=== PATIENT | female | born 1980 | race Two or more races ===

== ENCOUNTER 2016-08-31 08:36 | Emergency (ER) | payer MEDICAID ==
[~2016-08-31] VITALS: Ht 172.7 cm; Wt 97.5 kg
[~2016-08-31 08:36] MED LIST: ALBU0.084; ALBU18; CARI-277 PO; GABA250S2 PO; IBUPROFEN 800 MG TABLET; LEVO-28; LISI10TA6; METO-159; OMEPRAZOLE DR 20 MG CAPSULE; PANTOPRAZOLE SOD DR 40 MG TAB; PHENERGAN; TOPI100T29 PO
[2016-08-31 09:21] VITALS: BP 166/111
[2016-08-31] MEDS: cefTRIAXone SOD 1,000 MG VL IM ONE (10:01)
[2016-08-31] MEDS: methylPREDNISolone SOD SUCC 125 MG/2 ML VL IM ONE (10:01)
[2016-08-31] MEDS: ONDANSETRON HCL 4 MG/2 ML VIAL IM ONE (10:02)
[2016-08-31] MEDS: HYDROcodone-ACET 10/325MG TAB PO ONE (10:15)
== END 2016-08-31 10:48 | disposition home or self-care (01) ==
LOC: ER 08:36
DX: L03.211 Cellulitis of face (principal); H01.001 Unspecified blepharitis right upper eyelid; J45.909 Unspecified asthma, uncomplicated; I10 Essential (primary) hypertension; F17.210 Nicotine dependence, cigarettes, uncomplicated; Z90.89 Acquired absence of other organs; Z90.49 Acquired absence of other specified parts of digestive tract; Z88.0 Allergy status to penicillin; Z88.1 Allergy status to other antibiotic agents
CPT/HCPCS: 96372; 99284; J0696; J2405; J2930

== ENCOUNTER 2016-08-31 21:11 | Emergency (ER) | payer MEDICAID ==
[~2016-08-31] VITALS: Ht 172.7 cm; Wt 99.8 kg
[2016-08-31 21:19] VITALS: BP 129/92
[2016-09-01] MEDS ORDERED: IBUPROFEN 600 MG TAB PO ONE (01:00)
[2016-09-01] MEDS ORDERED: ONDANSETRON ODT 4 MG TAB PO ONE (01:00)
== END 2016-09-01 01:08 | disposition home or self-care (01) ==
LOC: ER 21:14
DX: H01.003 Unspecified blepharitis right eye, unspecified eyelid (principal); L03.211 Cellulitis of face; J45.909 Unspecified asthma, uncomplicated; I10 Essential (primary) hypertension; F17.210 Nicotine dependence, cigarettes, uncomplicated; Z88.0 Allergy status to penicillin; Z88.1 Allergy status to other antibiotic agents; Z88.8 Allergy status to other drugs, medicaments and biological substances; Z90.49 Acquired absence of other specified parts of digestive tract; Z79.899 Other long term (current) drug therapy
CPT/HCPCS: 70480; 99284; Q0162

== ENCOUNTER 2016-09-02 14:45 | Emergency (ER) | payer MEDICAID ==
[~2016-09-02] VITALS: Ht 172.7 cm; Wt 99.8 kg
[2016-09-02 15:10] VITALS: BP 141/104
== END 2016-09-02 17:28 | disposition home or self-care (01) ==
LOC: ER 14:45
DX: L23.9 Allergic contact dermatitis, unspecified cause (principal); J45.909 Unspecified asthma, uncomplicated; I10 Essential (primary) hypertension; F17.210 Nicotine dependence, cigarettes, uncomplicated; Z79.899 Other long term (current) drug therapy; Z88.0 Allergy status to penicillin; Z88.1 Allergy status to other antibiotic agents; Z88.8 Allergy status to other drugs, medicaments and biological substances

== ENCOUNTER 2016-10-10 12:44 | Emergency (ER) | payer MEDICAID ==
[~2016-10-10] VITALS: Ht 172.7 cm; Wt 99.8 kg
[2016-10-10 12:53] VITALS: BP 145/90
== END 2016-10-10 15:14 | disposition home or self-care (01) ==
LOC: ER 12:44
DX: N76.0 Acute vaginitis (principal); F17.210 Nicotine dependence, cigarettes, uncomplicated; J45.909 Unspecified asthma, uncomplicated; I10 Essential (primary) hypertension; Z88.0 Allergy status to penicillin; Z88.1 Allergy status to other antibiotic agents; Z79.899 Other long term (current) drug therapy

== ENCOUNTER 2016-10-14 09:13 | Emergency (ER) | payer MEDICAID ==
[~2016-10-14] VITALS: Ht 172.7 cm; Wt 100.2 kg
[2016-10-14 09:18] VITALS: BP 158/91
[2016-10-14] MEDS: KETOROLAC TROMETH 60MG/2ML VIAL IM ONE (11:17)
[2016-10-14] MEDS: cefTRIAXone SOD 1,000 MG VL IM ONE (11:17)
== END 2016-10-14 11:52 | disposition home or self-care (01) ==
LOC: ER 09:17
DX: N76.2 Acute vulvitis (principal); N39.0 Urinary tract infection, site not specified; J45.909 Unspecified asthma, uncomplicated; F17.210 Nicotine dependence, cigarettes, uncomplicated; I10 Essential (primary) hypertension; Z90.49 Acquired absence of other specified parts of digestive tract; Z88.0 Allergy status to penicillin; Z88.1 Allergy status to other antibiotic agents; Z88.6 Allergy status to analgesic agent; Z88.8 Allergy status to other drugs, medicaments and biological substances
CPT/HCPCS: 96372; 99284; J0696; J1885

== ENCOUNTER 2016-10-17 14:21 | Emergency (ER) | payer MEDICAID ==
[~2016-10-17] VITALS: Ht 172.7 cm; Wt 99.8 kg
[2016-10-17 15:22] VITALS: BP 163/98
[2016-10-17] MEDS ORDERED: cefTRIAXone SOD 1,000 MG VL ONE (15:51)
[2016-10-17] MEDS ORDERED: cefTRIAXone SOD 1,000 MG VL IM ONE ×2 (16:00→16:15)
[2016-10-17] MEDS ORDERED: KETOROLAC TROMETH 60MG/2ML VIAL IM ONE (16:00)
== END 2016-10-17 18:50 | disposition home or self-care (01) ==
LOC: ER 14:21
DX: N76.2 Acute vulvitis (principal); J45.909 Unspecified asthma, uncomplicated; I10 Essential (primary) hypertension; Z90.49 Acquired absence of other specified parts of digestive tract; F17.210 Nicotine dependence, cigarettes, uncomplicated; Z88.0 Allergy status to penicillin; Z88.1 Allergy status to other antibiotic agents; Z88.6 Allergy status to analgesic agent; Z88.8 Allergy status to other drugs, medicaments and biological substances
CPT/HCPCS: 96372; 99284; J0696; J1885

== ENCOUNTER 2016-10-21 21:23 | Emergency (ER) | payer MEDICAID ==
[~2016-10-21] VITALS: Ht 172.7 cm; Wt 99.8 kg
[2016-10-21 21:45] VITALS: BP 160/105
[2016-10-22 00:50] LABS: Urine Bilirubin Negative (Negative); Urine Ca Oxalate Crystal MANY (None Seen); Urine Color Yellow (Yellow); Urine Glucose Normal (Normal); Urine Ketone Negative (Negative); Urine Mucus FEW (None Seen); Urine Nitrite Negative (Negative); Urine RBC 4 /hpf (0 - 4); Urine Squamous Epithelial Cell MANY /hpf (<5); Urine pH 5.5 (5.0-8.0)
[2016-10-22 00:55] LABS: Urine Blood 1+ /uL (Negative)
[2016-10-22] MEDS ORDERED: cefTRIAXone SOD 1,000 MG VL IM ONE (01:15)
[2016-10-22] MEDS ORDERED: LIDOCAINE 1% HCL (LOCAL ANESTH.) INJ 20ML MDV ONE (01:23)
[2016-10-22] MEDS ORDERED: ONDANSETRON HCL 4 MG/2 ML VIAL IM ONE (01:30)
== END 2016-10-22 01:47 | disposition home or self-care (01) ==
LOC: ER 21:23
DX: N76.4 Abscess of vulva (principal); J45.909 Unspecified asthma, uncomplicated; I10 Essential (primary) hypertension; Z79.899 Other long term (current) drug therapy; Z88.0 Allergy status to penicillin; Z88.1 Allergy status to other antibiotic agents; F17.210 Nicotine dependence, cigarettes, uncomplicated
CPT/HCPCS: 81001; 81025; 96372; 99284; J0696; J2001; J2405

== ENCOUNTER 2016-12-19 18:28 | Emergency (ER) | payer MEDICAID ==
[~2016-12-19] VITALS: Ht 172.7 cm; Wt 99.8 kg
[2016-12-19 18:33] VITALS: BP 161/113
[2016-12-19 19:08] LABS: Urine Bilirubin Negative (Negative); Urine Color Yellow (Yellow); Urine Glucose Normal (Normal); Urine Ketone Negative (Negative); Urine Mucus FEW (None Seen); Urine Nitrite Negative (Negative); Urine RBC 433 /hpf (0 - 4); Urine Squamous Epithelial Cell FEW /hpf (<5); Urine pH 5.5 (5.0-8.0)
[2016-12-19 19:14] LABS: Urine Blood 3+ /uL (Negative)
[2016-12-19 19:29] LABS: Basophils # (auto) 0.1 uL; Basophils % (auto) 0.5 % (0.0-2.0); Eosinophils # (auto) 0.3 uL; Eosinophils % (auto) 2.1 % (0.0-7.0); Hematocrit 42.5 % (36.0-46.0); Hemoglobin 14.2 g/dL (12.2-16.2); Lymphocytes # (auto) 3.2 uL; Lymphocytes % (auto) 23.5 % (10.0-50.0); Mean Corpuscular Hemoglobin 27.8 pg (28.0-32.0); Mean Corpuscular Hgb Conc. 33.5 g/dL (32.0-36.0); Mean Corpuscular Volume 83.2 fL (80.0-100.0); Mean Platelet Volume 7.5 fL (7.4-10.4); Monocytes # (auto) 0.9 uL; Monocytes % (auto) 6.9 % (0.0-12.0); Neutrophils # (auto) 9.1 uL; Platelet Count (auto) 413 10^3/uL (140-450); White Blood Cell 13.5 10^3/uL (4.4-10.8)
[2016-12-19] MEDS ORDERED: KETOROLAC TROMETH 30 MG/ML 1ML VIAL IV ONE (20:00)
[2016-12-19] MEDS ORDERED: ONDANSETRON HCL 4 MG/2 ML VIAL IV ONE (20:00)
[2016-12-19] MEDS ORDERED: SODIUM CHLORIDE 0.9% 1,000 ML IV ONE (20:00)
[2016-12-19 20:05] LABS: Albumin 3.6 g/dL (3.4-5.0); BUN/Creatinine Ratio 11.3; Bilirubin, Total 0.4 mg/dL (0.2-1.0); Calcium 8.4 mg/dL (8.5-10.1); Potassium 3.5 mmol/L (3.5-5.1); Total Protein 7.2 g/dL (6.4-8.2)
[2016-12-20] MEDS ORDERED: ONDANSETRON ODT 4 MG TAB PO ONE (00:30)
[2016-12-20] MEDS ORDERED: traMADol HCL 50 MG TAB PO ONE (00:30)
== END 2016-12-20 00:55 | disposition home or self-care (01) ==
LOC: ER 18:30
DX: R10.9 Unspecified abdominal pain (principal); M54.5 Low back pain; F17.210 Nicotine dependence, cigarettes, uncomplicated; R11.2 Nausea with vomiting, unspecified; J45.909 Unspecified asthma, uncomplicated; I10 Essential (primary) hypertension; Z90.49 Acquired absence of other specified parts of digestive tract; Z88.0 Allergy status to penicillin; Z88.1 Allergy status to other antibiotic agents; Z88.8 Allergy status to other drugs, medicaments and biological substances
CPT/HCPCS: 36415; 74176; 80053; 81001; 81025; 85025; 94761; 96361; 96374; 96375; 99285; J1885; J2405; J7030; Q0162

== ENCOUNTER 2017-01-12 21:54 | Emergency (ER) | payer MEDICAID ==
[~2017-01-12] VITALS: Ht 172.7 cm; Wt 99.8 kg
[2017-01-12 22:00] VITALS: BP 158/99
== END 2017-01-13 05:32 | disposition home or self-care (01) ==
LOC: ER 22:10
DX: T20.50XA Corrosion of first degree of head, face, and neck, unspecified site, initial encounter (principal); I10 Essential (primary) hypertension; J45.909 Unspecified asthma, uncomplicated; Z88.0 Allergy status to penicillin; Z88.1 Allergy status to other antibiotic agents; T65.891A Toxic effect of other specified substances, accidental (unintentional), initial encounter; Y93.89 Activity, other specified; Y99.8 Other external cause status; Y92.89 Other specified places as the place of occurrence of the external cause

== ENCOUNTER 2017-07-23 22:19 | Emergency (ER) | payer MEDICAID ==
[~2017-07-23] VITALS: Ht 172.7 cm; Wt 99.8 kg
[2017-07-24 01:20] LABS: Basophils # (auto) 0.1 uL; Basophils % (auto) 0.9 % (0.0-2.0); Eosinophils # (auto) 0.4 uL; Eosinophils % (auto) 2.2 % (0.0-7.0); Hematocrit 43.1 % (36.0-46.0); Hemoglobin 14.3 g/dL (12.2-16.2); Lymphocytes # (auto) 4.1 uL; Lymphocytes % (auto) 25.4 % (10.0-50.0); Mean Corpuscular Hemoglobin 27.6 pg (28.0-32.0); Mean Corpuscular Hgb Conc. 33.2 g/dL (32.0-36.0); Mean Corpuscular Volume 83.2 fL (80.0-100.0); Monocytes # (auto) 0.8 uL; Monocytes % (auto) 4.7 % (0.0-12.0); Neutrophils # (auto) 10.8 uL; Neutrophils % (auto) 66.8 % (37.0-80.0); Platelet Count (auto) 444 10^3/uL (140-450); Red Blood Cells 5.18 10^6/uL (4.0-5.20); Red Cell Distribution Width 15.9 % (11.8-14.3); White Blood Cell 16.2 10^3/uL (4.4-10.8)
[2017-07-24 01:41] LABS: Albumin 3.7 g/dL (3.4-5.0); Potassium 3.7 mmol/L (3.5-5.1)
[2017-07-24 01:46] LABS: Urine Bacteria NONE SEEN /hpf (None Seen); Urine Blood TRACE /uL (Negative); Urine Specific Gravity 1.021 (1.001-1.035); Urine WBC 2 /hpf (0 - 5)
[2017-07-24 01:49] LABS: Bilirubin, Total 0.1 mg/dL (0.2-1.0)
[2017-07-24] MEDS ORDERED: IPRATROPIUM BROM 0.5 MG/2.5ML INH SOL NEB ONE (09:15)
[2017-07-24] MEDS ORDERED: ALBUTEROL SULF 2.5 MG/0.5ML(0.5%) NEB SOLN NEB ONE (09:15)
[2017-07-24 11:00] VITALS: BP 140/100
== END 2017-07-24 11:32 | disposition home or self-care (01) ==
LOC: ER 22:29
DX: J45.909 Unspecified asthma, uncomplicated (principal); G89.29 Other chronic pain; M54.9 Dorsalgia, unspecified; I10 Essential (primary) hypertension; R00.0 Tachycardia, unspecified; K21.9 Gastro-esophageal reflux disease without esophagitis; F17.210 Nicotine dependence, cigarettes, uncomplicated; Z88.0 Allergy status to penicillin; Z88.1 Allergy status to other antibiotic agents
CPT/HCPCS: 36415; 71046; 80053; 81001; 81025; 84484; 85025; 93005; 94640

== ENCOUNTER 2017-07-28 13:07 | Emergency (ER) | payer MEDICAID ==
[~2017-07-28] VITALS: Ht 172.7 cm; Wt 99.8 kg
[2017-07-28 13:25] VITALS: BP 162/115
[2017-07-28] MEDS ORDERED: methylPREDNISolone SOD SUCC 125 MG/2 ML VL IM ONE (15:45)
[2017-07-28] MEDS ORDERED: ALBUTEROL SULF 2.5 MG/0.5ML(0.5%) NEB SOLN NEB ONE ×2 (15:45→16:30)
[2017-07-28] MEDS ORDERED: IPRATROPIUM BROM 0.5 MG/2.5ML INH SOL NEB ONE ×2 (15:45→16:30)
== END 2017-07-28 16:34 | disposition home or self-care (01) ==
LOC: ER 13:07
DX: J45.909 Unspecified asthma, uncomplicated (principal); F41.1 Generalized anxiety disorder; I10 Essential (primary) hypertension; F17.210 Nicotine dependence, cigarettes, uncomplicated
CPT/HCPCS: 71046; 94640; 96372; 99284; J2930

== ENCOUNTER 2017-08-22 20:10 | Emergency (ER) | payer MEDICAID ==
[~2017-08-22] VITALS: Ht 172.7 cm; Wt 105.7 kg
[2017-08-22] MEDS ORDERED: cloNIDine HCL 0.1 MG TAB ONE (20:19)
[2017-08-22] MEDS ORDERED: cloNIDine HCL 0.1 MG TAB PO ONE (20:30)
[2017-08-22] MEDS ORDERED: HYDROcodone-ACET 5/325MG TAB PO ONE (22:30)
[2017-08-22 22:31] LABS: Basophils # (auto) 0.1 uL; Basophils % (auto) 0.6 % (0.0-2.0); Eosinophils # (auto) 0.4 uL; Eosinophils % (auto) 2.6 % (0.0-7.0); Hematocrit 40.1 % (36.0-46.0); Hemoglobin 13.3 g/dL (12.2-16.2); Lymphocytes # (auto) 3.4 uL; Lymphocytes % (auto) 24.3 % (10.0-50.0); Mean Corpuscular Hemoglobin 27.6 pg (28.0-32.0); Mean Corpuscular Hgb Conc. 33.2 g/dL (32.0-36.0); Mean Corpuscular Volume 83.1 fL (80.0-100.0); Monocytes % (auto) 6.9 % (0.0-12.0); Neutrophils # (auto) 9.1 uL; Neutrophils % (auto) 65.6 % (37.0-80.0); Nucleated Red Blood Cells % 0.1 %; Platelet Count (auto) 387 10^3/uL (140-450); Red Blood Cells 4.82 10^6/uL (4.0-5.20); Red Cell Distribution Width 16.1 % (11.8-14.3); White Blood Cell 13.9 10^3/uL (4.4-10.8)
[2017-08-22 22:34] LABS: Urine Bacteria NONE SEEN /hpf (None Seen); Urine Blood TRACE /uL (Negative); Urine Specific Gravity 1.019 (1.001-1.035); Urine WBC <1 /hpf (0 - 5)
[2017-08-22 22:46] LABS: INR 0.95 (0.9-1.15); Partial Thromboplastin Time 29.2 sec (22.64-33.71); Prothrombin Time 10.3 sec (9.37-12.3)
[2017-08-22 23:44] LABS: Alanine Aminotransferase 27 U/L (13-56); Albumin 3.3 g/dL (3.4-5.0); Alkaline Phosphatase 68 U/L (45-117); Anion Gap 7 (5-15); Aspartate Aminotransferase 16 U/L (15-37); Bilirubin, Total 0.2 mg/dL (0.2-1.0); Blood Urea Nitrogen 6 mg/dL (7-18); Calcium 8.6 mg/dL (8.5-10.1); Carbon Dioxide 25 mmol/L (21-32); Chloride 105 mmol/L (98-107); GFR African American 181 mL/min; GFR Non-African American 149 mL/min; Glucose 92 mg/dL (74-106); Potassium 4.4 mmol/L (3.5-5.1); Sodium 137 mmol/L (136-145); Total Protein 7.2 g/dL (6.4-8.2)
[2017-08-23 00:25] VITALS: BP 128/73
== END 2017-08-23 01:15 | disposition home or self-care (01) ==
LOC: ER 20:10
DX: J06.9 Acute upper respiratory infection, unspecified (principal); J45.909 Unspecified asthma, uncomplicated; I10 Essential (primary) hypertension; F17.210 Nicotine dependence, cigarettes, uncomplicated; Z90.49 Acquired absence of other specified parts of digestive tract
CPT/HCPCS: 36415; 71045; 80053; 81001; 81025; 83880; 84484; 85025; 85610; 85730; 93005; 99285; J7030

== ENCOUNTER 2017-09-23 20:23 | Emergency (ER) | payer MEDICAID ==
[~2017-09-23] VITALS: Ht 172.7 cm; Wt 105.2 kg
[2017-09-23 21:51] LABS: Basophils # (auto) 0.2 uL; Eosinophils # (auto) 0.2 uL; Eosinophils % (auto) 1.3 % (0.0-7.0); Hematocrit 43.1 % (36.0-46.0); Hemoglobin 14.2 g/dL (12.2-16.2); Lymphocytes # (auto) 4.1 uL; Lymphocytes % (auto) 21.1 % (10.0-50.0); Mean Corpuscular Hemoglobin 27.2 pg (28.0-32.0); Mean Corpuscular Hgb Conc. 32.9 g/dL (32.0-36.0); Mean Corpuscular Volume 82.8 fL (80.0-100.0); Monocytes # (auto) 1.1 uL; Monocytes % (auto) 5.4 % (0.0-12.0); Neutrophils # (auto) 13.9 uL; Neutrophils % (auto) 71.2 % (37.0-80.0); Platelet Count (auto) 409 10^3/uL (140-450); Red Blood Cells 5.21 10^6/uL (4.0-5.20); Red Cell Distribution Width 15.9 % (11.8-14.3); White Blood Cell 19.5 10^3/uL (4.4-10.8)
[2017-09-23 22:06] LABS: Urine Bacteria MOD /hpf (None Seen); Urine Blood 2+ /uL (Negative); Urine Specific Gravity 1.017 (1.001-1.035); Urine WBC 12 /hpf (0 - 5)
[2017-09-23 22:10] LABS: Albumin 3.5 g/dL (3.4-5.0); BUN/Creatinine Ratio 8.8; Bilirubin, Total 0.2 mg/dL (0.2-1.0); Calcium 8.9 mg/dL (8.5-10.1); Potassium 3.3 mmol/L (3.5-5.1); Total Protein 7.6 g/dL (6.4-8.2)
[2017-09-23 22:11] LABS: Alcohol, Urine < 3.0 mg/dL (0-5); Amphetamine Screen, Urine NEGATIVE (NEGATIVE); Barbiturate Scree,Urine NEGATIVE (NEGATIVE); Benzodiazephine Screen, Urine NEGATIVE (NEGATIVE); Cannabinoid Screen, Urine NEGATIVE (NEGATIVE); Cocaine Screen, Urine NEGATIVE (NEGATIVE); Opiate Scree,Urine NEGATIVE (NEGATIVE); Phencyclidine Screen, Urine NEGATIVE (NEGATIVE)
[2017-09-24 07:03] VITALS: BP 119/78
[2017-09-24] MEDS ORDERED: cefTRIAXone SOD 1,000 MG VL IM ONE (07:45)
[2017-09-24] MEDS ORDERED: KETOROLAC TROMETH 60MG/2ML VIAL IM ONE (07:45)
== END 2017-09-24 08:08 | disposition home or self-care (01) ==
LOC: ER 20:23
DX: I10 Essential (primary) hypertension (principal); N39.0 Urinary tract infection, site not specified; J01.90 Acute sinusitis, unspecified; F17.210 Nicotine dependence, cigarettes, uncomplicated; J45.909 Unspecified asthma, uncomplicated; Z88.1 Allergy status to other antibiotic agents; Z88.0 Allergy status to penicillin
CPT/HCPCS: 36415; 70450; 80053; 80307; 81001; 85025; 96372; 99285; J0696; J1885

== ENCOUNTER 2017-09-26 15:47 | Emergency (ER) | payer MEDICAID ==
[~2017-09-26] VITALS: Ht 172.7 cm; Wt 106.1 kg
[2017-09-26 20:56] VITALS: BP 160/82
== END 2017-09-26 21:01 | disposition home or self-care (01) ==
LOC: ER 15:47
DX: R07.89 Other chest pain (principal); M79.89 Other specified soft tissue disorders; J45.909 Unspecified asthma, uncomplicated; E78.5 Hyperlipidemia, unspecified; I10 Essential (primary) hypertension; F17.210 Nicotine dependence, cigarettes, uncomplicated; Z88.0 Allergy status to penicillin; Z88.1 Allergy status to other antibiotic agents; Z88.8 Allergy status to other drugs, medicaments and biological substances; Z79.899 Other long term (current) drug therapy; Z90.49 Acquired absence of other specified parts of digestive tract
CPT/HCPCS: 93005; 93971

== ENCOUNTER 2018-07-21 19:33 | Emergency (ER) | payer MEDICAID ==
[~2018-07-21] VITALS: Ht 172.7 cm; Wt 101.2 kg
[2018-07-21] MEDS ORDERED: cloNIDine HCL 0.1 MG TAB PO ONE (20:15)
[2018-07-21 22:04] LABS: Basophils # (auto) 0.1 uL; Basophils % (auto) 0.6 % (0.0-2.0); Eosinophils # (auto) 0.6 uL; Eosinophils % (auto) 3.5 % (0.0-7.0); Hemoglobin 14.6 g/dL (12.2-16.2); Lymphocytes # (auto) 3.5 uL; Lymphocytes % (auto) 19.8 % (10.0-50.0); Mean Corpuscular Hemoglobin 27.5 pg (28.0-32.0); Mean Corpuscular Hgb Conc. 32.5 g/dL (32.0-36.0); Mean Corpuscular Volume 84.7 fL (80.0-100.0); Monocytes % (auto) 5.6 % (0.0-12.0); Neutrophils # (auto) 12.6 uL; Neutrophils % (auto) 70.5 % (37.0-80.0); Nucleated Red Blood Cells % 0.1 %; Platelet Count (auto) 450 10^3/uL (140-450); Red Blood Cells 5.31 10^6/uL (4.0-5.20); White Blood Cell 17.9 10^3/uL (4.4-10.8)
[2018-07-21 22:09] LABS: Albumin 3.6 g/dL (3.4-5.0); BUN/Creatinine Ratio 13.6; Calcium 8.8 mg/dL (8.5-10.1); Potassium 3.6 mmol/L (3.5-5.1)
[2018-07-21 22:11] LABS: Bilirubin, Total 0.1 mg/dL (0.2-1.0); Total Protein 7.7 g/dL (6.4-8.2)
[2018-07-22] MEDS ORDERED: ONDANSETRON ODT 4 MG TAB PO ONE (03:45)
[2018-07-22 04:09] LABS: Urine Bacteria NONE SEEN /hpf (None Seen); Urine Blood TRACE /uL (Negative); Urine Mucus FEW (None Seen); Urine Specific Gravity 1.028 (1.001-1.035); Urine WBC 19 /hpf (0 - 5)
[2018-07-22 04:19] LABS: Alcohol, Urine < 3.0 mg/dL (0-5); Amphetamine Screen, Urine NEGATIVE (NEGATIVE); Barbiturate Scree,Urine NEGATIVE (NEGATIVE); Benzodiazephine Screen, Urine NEGATIVE (NEGATIVE); Cannabinoid Screen, Urine NEGATIVE (NEGATIVE); Cocaine Screen, Urine NEGATIVE (NEGATIVE); Opiate Scree,Urine NEGATIVE (NEGATIVE); Phencyclidine Screen, Urine NEGATIVE (NEGATIVE)
[2018-07-22] MEDS ORDERED: LEVOFLOXACIN 500 MG TAB PO ONE (05:00)
[2018-07-22 05:23] VITALS: BP 120/80
== END 2018-07-22 05:23 | disposition home or self-care (01) ==
LOC: ER 19:33
DX: I10 Essential (primary) hypertension (principal); N39.0 Urinary tract infection, site not specified; J45.909 Unspecified asthma, uncomplicated; E78.5 Hyperlipidemia, unspecified; F17.210 Nicotine dependence, cigarettes, uncomplicated; Z79.899 Other long term (current) drug therapy; Z88.1 Allergy status to other antibiotic agents; Z88.0 Allergy status to penicillin; Z88.6 Allergy status to analgesic agent; Z90.49 Acquired absence of other specified parts of digestive tract; Z90.89 Acquired absence of other organs
CPT/HCPCS: 36415; 80053; 80307; 81001; 84484; 85025; 93005; 99284; Q0162

== ENCOUNTER 2018-09-14 20:38 | Emergency (ER) | payer MEDICAID ==
[~2018-09-14] VITALS: Ht 172.7 cm; Wt 104.3 kg
[2018-09-14] MEDS ORDERED: IPRATROPIUM BROM 0.5 MG/2.5ML INH SOL NEB ONE (21:30)
[2018-09-14] MEDS ORDERED: ALBUTEROL SULF 2.5 MG/0.5ML(0.5%) NEB SOLN NEB ONE (21:30)
[2018-09-14] MEDS ORDERED: diphenhdrAMINE HCL 25 MG CAP PO ONE (23:15)
[2018-09-14] MEDS ORDERED: EPINEPHrine HCL 1 MG/1 ML AMP IM ONE (23:15)
[2018-09-14] MEDS ORDERED: FAMOTIDINE 20 MG TAB PO ONE (23:15)
[2018-09-14] MEDS ORDERED: methylPREDNISolone SOD SUCC 125 MG/2 ML VL IM ONE (23:15)
[2018-09-15] MEDS ORDERED: IBUPROFEN 600 MG TAB PO ONE (00:15)
[2018-09-15 00:28] VITALS: BP 125/87
== END 2018-09-15 00:17 | disposition home or self-care (01) ==
LOC: ER 20:43
DX: J45.901 Unspecified asthma with (acute) exacerbation (principal); J06.9 Acute upper respiratory infection, unspecified; E78.5 Hyperlipidemia, unspecified; I10 Essential (primary) hypertension; F17.210 Nicotine dependence, cigarettes, uncomplicated; Z90.49 Acquired absence of other specified parts of digestive tract
CPT/HCPCS: 71046; 94640; 96372; 99283; J0171; J2930; J7611; J7644

== ENCOUNTER 2018-09-15 18:14 | Emergency (ER) | payer MEDICAID ==
[~2018-09-15] VITALS: Ht 172.7 cm; Wt 104.3 kg
[2018-09-15 20:12] LABS: Basophils # (auto) 0 uL; Basophils % (auto) 0.2 % (0.0-2.0); Eosinophils # (auto) 0 uL; Hematocrit 40.8 % (36.0-46.0); Hemoglobin 13.2 g/dL (12.2-16.2); Lymphocytes # (auto) 2.6 uL; Mean Corpuscular Hemoglobin 27.3 pg (28.0-32.0); Mean Corpuscular Hgb Conc. 32.4 g/dL (32.0-36.0); Mean Corpuscular Volume 84.2 fL (80.0-100.0); Monocytes # (auto) 1.7 uL; Monocytes % (auto) 7.1 % (0.0-12.0); Neutrophils % (auto) 81.7 % (37.0-80.0); Platelet Count (auto) 442 10^3/uL (140-450); Red Blood Cells 4.84 10^6/uL (4.0-5.20); White Blood Cell 23.3 10^3/uL (4.4-10.8)
[2018-09-15 20:30] LABS: Alanine Aminotransferase 31 U/L (13-56); Albumin 3.3 g/dL (3.4-5.0); Anion Gap 7 (5-15); Blood Urea Nitrogen 11 mg/dL (7-18); Calcium 8.4 mg/dL (8.5-10.1); Carbon Dioxide 26 mmol/L (21-32); Chloride 107 mmol/L (98-107); Glucose 109 mg/dL (74-106); Potassium 3.7 mmol/L (3.5-5.1); Sodium 140 mmol/L (136-145)
[2018-09-15 20:35] LABS: Alkaline Phosphatase 76 U/L (45-117); Aspartate Aminotransferase 9 U/L (15-37); BUN/Creatinine Ratio 17.2; Bilirubin, Total 0.2 mg/dL (0.2-1.0); GFR African American 135 mL/min; GFR Non-African American 112 mL/min; Total Protein 7.3 g/dL (6.4-8.2)
[2018-09-16 04:39] LABS: Urine Bacteria FEW /hpf (None Seen); Urine Blood Negative /uL (Negative); Urine Specific Gravity 1.029 (1.001-1.035); Urine WBC 2 /hpf (0 - 5)
[2018-09-16 10:29] LABS: Alcohol, Urine < 3.0 mg/dL (0-5); Amphetamine Screen, Urine NEGATIVE (NEGATIVE); Barbiturate Scree,Urine NEGATIVE (NEGATIVE); Benzodiazephine Screen, Urine NEGATIVE (NEGATIVE); Cannabinoid Screen, Urine NEGATIVE (NEGATIVE); Cocaine Screen, Urine NEGATIVE (NEGATIVE); Opiate Scree,Urine NEGATIVE (NEGATIVE); Phencyclidine Screen, Urine NEGATIVE (NEGATIVE)
[2018-09-16] MEDS ORDERED: IPRATROPIUM BROM 0.5 MG/2.5ML INH SOL NEB ONE (11:30)
[2018-09-16] MEDS ORDERED: ALBUTEROL SULF 2.5 MG/0.5ML(0.5%) NEB SOLN NEB ONE (11:30)
[2018-09-16] MEDS ORDERED: cefTRIAXone 1GM/50ML D5W 50 ML IV ONE (11:30)
[2018-09-16] MEDS ORDERED: HYDROcodone-ACET 5/325MG TAB PO ONE (12:15)
[2018-09-16 12:34] LABS: Basophils % (auto) 1.3 % (0.0-2.0); Eosinophils # (auto) 0.4 uL; Mean Corpuscular Volume 84.1 fL (80.0-100.0); Nucleated Red Blood Cells % 0.1 %
[2018-09-16 12:36] LABS: Basophils # (auto) 0.3 uL; Eosinophils % (auto) 1.8 % (0.0-7.0); Hematocrit 44.4 % (36.0-46.0); Hemoglobin 14.3 g/dL (12.2-16.2); Lymphocytes # (auto) 5.4 uL; Lymphocytes % (auto) 26.8 % (10.0-50.0); Mean Corpuscular Hemoglobin 27.1 pg (28.0-32.0); Mean Corpuscular Hgb Conc. 32.3 g/dL (32.0-36.0); Monocytes # (auto) 1.1 uL; Monocytes % (auto) 5.3 % (0.0-12.0); Neutrophils # (auto) 13.1 uL; Neutrophils % (auto) 64.8 % (37.0-80.0); Platelet Count (auto) 452 10^3/uL (140-450); Red Blood Cells 5.28 10^6/uL (4.0-5.20); Red Cell Distribution Width 16.4 % (11.8-14.3); White Blood Cell 20.2 10^3/uL (4.4-10.8)
[2018-09-16 12:49] LABS: Albumin 3.6 g/dL (3.4-5.0); BUN/Creatinine Ratio 20.3; Calcium 8.6 mg/dL (8.5-10.1); Potassium 3.5 mmol/L (3.5-5.1)
[2018-09-16 12:52] LABS: Bilirubin, Total 0.4 mg/dL (0.2-1.0); Total Protein 7.7 g/dL (6.4-8.2)
[2018-09-16 15:45] VITALS: BP 123/73
== END 2018-09-16 15:54 | disposition home or self-care (01) ==
LOC: ER 18:14
DX: J45.909 Unspecified asthma, uncomplicated (principal); R07.89 Other chest pain; K76.0 Fatty (change of) liver, not elsewhere classified; N39.0 Urinary tract infection, site not specified; D72.828 Other elevated white blood cell count; E66.01 Morbid (severe) obesity due to excess calories; E46 Unspecified protein-calorie malnutrition; K21.9 Gastro-esophageal reflux disease without esophagitis; E78.5 Hyperlipidemia, unspecified; I10 Essential (primary) hypertension; F17.210 Nicotine dependence, cigarettes, uncomplicated; Z90.49 Acquired absence of other specified parts of digestive tract; Z68.35 Body mass index [BMI] 35.0-35.9, adult
CPT/HCPCS: 36415; 71046; 74176; 80053; 80307; 81001; 81025; 83880; 84484; 85025; 87040; 87086; 93005; 94640; 96365; 99284; J0696; J7611; J7644

== ENCOUNTER 2018-09-19 20:46 | Emergency (ER) | payer MEDICAID ==
[~2018-09-19] VITALS: Ht 172.7 cm; Wt 104.3 kg
[2018-09-19 21:41] LABS: Basophils # (auto) 0.2 uL; Basophils % (auto) 1.1 % (0.0-2.0); Eosinophils # (auto) 0.9 uL; Eosinophils % (auto) 4.6 % (0.0-7.0); Hematocrit 42.4 % (36.0-46.0); Hemoglobin 14.1 g/dL (12.2-16.2); Lymphocytes # (auto) 4.4 uL; Lymphocytes % (auto) 22.2 % (10.0-50.0); Mean Corpuscular Hemoglobin 27.7 pg (28.0-32.0); Mean Corpuscular Hgb Conc. 33.3 g/dL (32.0-36.0); Mean Corpuscular Volume 83.2 fL (80.0-100.0); Monocytes # (auto) 1.1 uL; Monocytes % (auto) 5.7 % (0.0-12.0); Neutrophils % (auto) 66.4 % (37.0-80.0); Platelet Count (auto) 445 10^3/uL (140-450); Red Cell Distribution Width 15.7 % (11.8-14.3); White Blood Cell 19.6 10^3/uL (4.4-10.8)
[2018-09-19 21:59] LABS: Alanine Aminotransferase 29 U/L (13-56); Albumin 3.2 g/dL (3.4-5.0); Anion Gap 7 (5-15); Aspartate Aminotransferase 14 U/L (15-37); BUN/Creatinine Ratio 16.9; Blood Urea Nitrogen 11 mg/dL (7-18); Calcium 8.6 mg/dL (8.5-10.1); Carbon Dioxide 26 mmol/L (21-32); Chloride 106 mmol/L (98-107); GFR African American 133 mL/min; GFR Non-African American 110 mL/min; Glucose 102 mg/dL (74-106); Potassium 3.8 mmol/L (3.5-5.1); Sodium 139 mmol/L (136-145)
[2018-09-19 22:04] LABS: Alkaline Phosphatase 79 U/L (45-117); Bilirubin, Total 0.1 mg/dL (0.2-1.0); Total Protein 7.3 g/dL (6.4-8.2)
[2018-09-19 22:39] LABS: Urine Bacteria NONE SEEN /hpf (None Seen); Urine Blood TRACE /uL (Negative); Urine Specific Gravity 1.027 (1.001-1.035); Urine WBC 3 /hpf (0 - 5)
[2018-09-20] MEDS ORDERED: SODIUM CHLORIDE 0.9% 1,000 ML IVB ONE (07:47)
[2018-09-20] MEDS ORDERED: SODIUM CHLORIDE 0.9% 1,000 ML IV ONE (07:47)
[2018-09-20] MEDS ORDERED: methylPREDNISolone SOD SUCC 125 MG/2 ML VL IV ONE (08:00)
[2018-09-20] MEDS ORDERED: AZITHROMYCIN 500MG/ 250ML 250 ML IV ONE (08:00)
[2018-09-20] MEDS ORDERED: ALBUTEROL SULF 2.5 MG/0.5ML(0.5%) NEB SOLN NEB ONE (08:00)
[2018-09-20] MEDS ORDERED: IPRATROPIUM BROM 0.5 MG/2.5ML INH SOL NEB ONE (08:00)
[2018-09-20 09:09] LABS: Beta HCG, Quantitative < 1 mlU/mL (1-3); Thyroid Stimulating Hormone 2.29 uIU/mL (0.358-3.74)
[2018-09-20] MEDS ORDERED: ONDANSETRON HCL 4 MG/2 ML VIAL IV ONE (09:45)
[2018-09-20 11:25] VITALS: BP 112/70
== END 2018-09-20 12:41 | disposition home or self-care (01) ==
LOC: ER 20:49
DX: J45.909 Unspecified asthma, uncomplicated (principal); F17.210 Nicotine dependence, cigarettes, uncomplicated; N39.0 Urinary tract infection, site not specified; I10 Essential (primary) hypertension; E66.01 Morbid (severe) obesity due to excess calories; K21.9 Gastro-esophageal reflux disease without esophagitis; E78.5 Hyperlipidemia, unspecified; R51 Headache; F41.9 Anxiety disorder, unspecified; Z68.35 Body mass index [BMI] 35.0-35.9, adult; Z90.49 Acquired absence of other specified parts of digestive tract
CPT/HCPCS: 36415; 70450; 80053; 81001; 83735; 84443; 84484; 84702; 85025; 93005; 94640; 94761; 96365; 96366; 96375; 99284; J0456; J2405; J2930; J7030; J7611; J7644

== ENCOUNTER 2022-11-26 15:35 | Inpatient (IN) | payer MEDICAID ==
[~2022-11-26] VITALS: Ht 172.7 cm; Wt 125.7 kg
[~2022-11-26 15:35] MED LIST changes: +HYDR50CA PO; +LISI-716; -LISI10TA6; +PRED20TA2 PO
[2022-11-26 16:39] LABS: Basophils # (auto) 0.2 10 ^3/uL (0-0.2); Basophils % (auto) 1.1 % (0.0-2.0); Eosinophils # (auto) 0.4 10 ^3/uL (0-0.8); Hematocrit 43.1 % (36.0-46.0); Hemoglobin 13.8 g/dL (12.2-16.2); Lymphocytes # (auto) 4.3 10 ^3/uL (0.4-5.4); Lymphocytes % (auto) 22.4 % (10.0-50.0); Mean Corpuscular Hemoglobin 27.6 pg (28.0-32.0); Mean Corpuscular Hgb Conc. 32.1 g/dL (32.0-36.0); Mean Corpuscular Volume 86.1 fL (80.0-100.0); Monocytes % (auto) 5.1 % (0.0-12.0); Neutrophils # (auto) 13.2 10 ^3/uL (1.6-8.6); Neutrophils % (auto) 69.4 % (37.0-80.0); Nucleated Red Blood Cells % 0.5 %; Red Cell Distribution Width 17.7 % (11.8-14.3)
[2022-11-26 18:39] LABS: Urine Bacteria None Seen /hpf (None Seen)
[2022-11-26 18:54] LABS: Albumin 3.3 g/dL (3.4-5.0); Calcium 8.4 mg/dL (8.5-10.1); Potassium 3.8 mmol/L (3.5-5.1)
[2022-11-26 18:57] LABS: BUN/Creatinine Ratio 13.8 (10.0-20.0); Bilirubin, Total 0.3 mg/dL (0.2-1.0); Total Protein 6.9 g/dL (6.4-8.2)
[2022-11-26 19:17] LABS: Urine WBC 0-1 /hpf (0 - 5)
[2022-11-26 19:18] LABS: Urine Blood Trace /uL (Negative)
[2022-11-26] MEDS ORDERED: VANCOMYCIN 1GM/250ML 250 ML IV ONE (21:45)
[2022-11-26] MEDS ORDERED: VANCOMYCIN PER PHARMACY 0 MG IV SCH (22:00)
[2022-11-26] MEDS ORDERED: DOCUSATE SOD 100 MG CAP PO PRN (22:00)
[2022-11-26] MEDS ORDERED: ONDANSETRON HCL 4 MG/2 ML VIAL IV PRN (22:00)
[2022-11-26] MEDS ORDERED: NITROGLYCERIN 0.4 MG SL TAB SL PRN (22:45)
[2022-11-26] MEDS ORDERED: MORPHINE SULFATE INJ 2 MG/ml SYRG IV PRN (22:45)
[2022-11-26] MEDS ORDERED: VANCOMYCIN 1GM/250ML 250 ML IV SCH (23:00)
[2022-11-27] MEDS: HYDROcodone-ACET 5/325MG TAB PO PRN ×3 (01:19→11:04)
[2022-11-27] MEDS: SODIUM CHLORIDE 0.9% 1,000 ML IV SCH ×2 (01:22→14:40)
[2022-11-27 04:53] LABS: Basophils # (auto) 0.1 10 ^3/uL (0-0.2); Basophils % (auto) 0.5 % (0.0-2.0); Eosinophils # (auto) 0.4 10 ^3/uL (0-0.8); Eosinophils % (auto) 2.5 % (0.0-7.0); Hematocrit 39.9 % (36.0-46.0); Hemoglobin 13.5 g/dL (12.2-16.2); Lymphocytes # (auto) 3.9 10 ^3/uL (0.4-5.4); Lymphocytes % (auto) 22.2 % (10.0-50.0); Mean Corpuscular Hemoglobin 28.6 pg (28.0-32.0); Mean Corpuscular Hgb Conc. 33.7 g/dL (32.0-36.0); Mean Corpuscular Volume 84.7 fL (80.0-100.0); Monocytes % (auto) 5.4 % (0.0-12.0); Neutrophils # (auto) 12.2 10 ^3/uL (1.6-8.6); Neutrophils % (auto) 69.4 % (37.0-80.0); Nucleated Red Blood Cells % 0.1 %; Red Blood Cells 4.72 10^6/uL (4.0-5.20); Red Cell Distribution Width 17.6 % (11.8-14.3); White Blood Cell 17.6 10^3/uL (4.4-10.8)
[2022-11-27 04:59] LABS: Potassium 3.4 mmol/L (3.5-5.1)
[2022-11-27 05:05] LABS: Bilirubin, Total 0.4 mg/dL (0.2-1.0); Calcium 8.3 mg/dL (8.5-10.1); Total Protein 6.3 g/dL (6.4-8.2)
[2022-11-27] MEDS: VANCOMYCIN 1GM/250ML 250 ML IV SCH ×3 (06:47→18:50)
[2022-11-27] MEDS: PANTOPRAZOLE 40 MG/10 ML VIAL INJ IV SCH (10:04)
[2022-11-27] MEDS: ENOXAPARIN SOD 40 MG/0.4 ML SYRINGE SC SCH (10:04)
[2022-11-27] MEDS ORDERED: AZITHROMYCIN 500MG/ 250ML 250 ML IV ONE (10:45)
[2022-11-27] MEDS ORDERED: PNEUMOCOCCAL VACC POLYS 25 MCG/0.5 ML VIAL IM ONE (10:45)
[2022-11-27 11:30] VITALS: BP 143/87
[2022-11-27] MEDS: IBUPROFEN 800 MG TAB PO PRN (14:33)
[2022-11-27 17:00] VITALS: BP 116/78
[2022-11-27] MEDS: MORPHINE SULFATE INJ 2 MG/ml SYRG IV PRN (20:52)
[2022-11-27 22:00] VITALS: BP 138/88
[2022-11-27] MEDS: TOPIRAMATE 100 MG TAB PO SCH (22:17)
[2022-11-28] MEDS: MORPHINE SULFATE INJ 2 MG/ml SYRG IV PRN ×4 (01:22→20:59)
[2022-11-28] MEDS: HYDROcodone-ACET 5/325MG TAB PO PRN ×2 (03:52→22:07)
[2022-11-28 05:00] VITALS: BP 124/66
[2022-11-28] MEDS ORDERED: TOPI50TA53 PO (07:09)
[2022-11-28] MEDS ORDERED: FURO1TAB33 PO (07:09)
[2022-11-28 09:00] VITALS: BP 122/77
[2022-11-28] MEDS: VANCOMYCIN 1GM/250ML 250 ML IV SCH ×2 (09:51→20:52)
[2022-11-28] MEDS: PANTOPRAZOLE 40 MG/10 ML VIAL INJ IV SCH (09:51)
[2022-11-28] MEDS: ENOXAPARIN SOD 40 MG/0.4 ML SYRINGE SC SCH (09:51)
[2022-11-28] MEDS: SODIUM CHLORIDE 0.9% 1,000 ML IV SCH (09:57)
[2022-11-28] MEDS: IBUPROFEN 800 MG TAB PO PRN (10:53)
[2022-11-28] MEDS: AZITHROMYCIN 500MG/ 250ML 250 ML IV SCH (10:54)
[2022-11-28] MEDS: TOPIRAMATE 100 MG TAB PO SCH ×2 (11:25→20:51)
[2022-11-28 13:00] VITALS: BP 131/84
[2022-11-28 17:00] VITALS: BP 121/71
[2022-11-28 22:00] VITALS: BP 131/84
[2022-11-29] MEDS: SODIUM CHLORIDE 0.9% 1,000 ML IV SCH (01:46)
[2022-11-29] MEDS: MORPHINE SULFATE INJ 2 MG/ml SYRG IV PRN ×2 (01:46→08:05)
[2022-11-29 05:00] VITALS: BP 162/106
[2022-11-29] MEDS: VANCOMYCIN 1GM/250ML 250 ML IV SCH (06:13)
[2022-11-29 09:00] VITALS: BP 159/93
[2022-11-29] MEDS ORDERED: AZIT500T66 PO (10:09)
[2022-11-29] MEDS ORDERED: TRAM50TA2 PO (10:09)
[2022-11-29] MEDS: AZITHROMYCIN 500MG/ 250ML 250 ML IV SCH (11:03)
[2022-11-29] MEDS: TOPIRAMATE 100 MG TAB PO SCH (11:03)
[2022-11-29] MEDS: ENOXAPARIN SOD 40 MG/0.4 ML SYRINGE SC SCH (11:03)
[2022-11-29] MEDS: PANTOPRAZOLE 40 MG/10 ML VIAL INJ IV SCH (11:03)
[2022-11-29 11:31] LABS: Hepatitis B Surface Antibody Positive (Negative)
[2022-11-29 12:53] VITALS: BP 132/80
[2022-11-29 13:00] VITALS: BP 132/80
[2022-11-29 15:50] LABS: Hepatitis C Antibody Negative (Negative)
== END 2022-11-29 15:49 | disposition home or self-care (01) | DRG 720 ==
LOC: ER 15:35 → OVERFLOW 22:45 → CENTRAL 11-27 08:38
PROVIDERS: ADMIT Nurse Practitioner Family; ATTEND Family Medicine
DX: A41.9 Sepsis, unspecified organism (principal); R56.9 Unspecified convulsions; H70.91 Unspecified mastoiditis, right ear; D64.9 Anemia, unspecified; H66.93 Otitis media, unspecified, bilateral; E66.01 Morbid (severe) obesity due to excess calories; E78.00 Pure hypercholesterolemia, unspecified; K21.9 Gastro-esophageal reflux disease without esophagitis; K80.20 Calculus of gallbladder without cholecystitis without obstruction; I10 Essential (primary) hypertension; F17.210 Nicotine dependence, cigarettes, uncomplicated; F41.9 Anxiety disorder, unspecified; J45.909 Unspecified asthma, uncomplicated; Z88.0 Allergy status to penicillin; Z88.1 Allergy status to other antibiotic agents; Z68.41 Body mass index [BMI] 40.0-44.9, adult; Z88.8 Allergy status to other drugs, medicaments and biological substances; Z79.899 Other long term (current) drug therapy; Z90.49 Acquired absence of other specified parts of digestive tract
CPT/HCPCS: 36415; 70480; 71045; 80053; 80202; 81001; 82565; 82962; 83880; 84484; 85025; 86706; 86803; 87040; 93005; 96365; C9113; G0378

== ENCOUNTER → 2023-08-29 19:46 | Emergency (ER) | payer MEDICAID ==
[~2023-08-29 19:46] MED LIST changes: +AZIT500T66 PO; +FURO1TAB33 PO; -GABA250S2 PO; +GABA250S7 PO; -LEVO-28; +LEVO500T91; -LISI-716; +LISI10TA34; +TOPI50TA53 PO; +TRAM50TA2 PO
== END | disposition home or self-care (01) ==
LOC: ER 19:46
DX: I10 Essential (primary) hypertension (principal); Z53.21 Procedure and treatment not carried out due to patient leaving prior to being seen by health care provider

== ENCOUNTER 2023-09-14 16:18 | Emergency (ER) | payer MEDICAID ==
[~2023-09-14] VITALS: Ht 172.7 cm; Wt 119.4 kg
[2023-09-14] MEDS: IPRATROPIUM BROM 0.5 MG/2.5ML INH SOL NEB ONE (18:39)
[2023-09-14] MEDS: ALBUTEROL SULF 2.5 MG/0.5ML(0.5%) NEB SOLN NEB ONE (18:40)
[2023-09-14] MEDS: diphenhdrAMINE HCL 50 MG/1 ML VL IM ONE (21:02)
[2023-09-14] MEDS: KETOROLAC TROMETH 60MG/2ML VIAL IM ONE (21:02)
[2023-09-14] MEDS: DexAMETHasone SOD PHOS 10MG/1ML VIAL INJ IM ONE (21:02)
[2023-09-14 21:14] VITALS: TEMP 98.2
[2023-09-14 21:35] VITALS: BP 154/102; PULSE 97; RESP 18; O2SAT 98
== END 2023-09-14 21:40 | disposition home or self-care (01) ==
LOC: ER 16:18
DX: T78.40XA Allergy, unspecified, initial encounter (principal); R51.9 Headache, unspecified; I10 Essential (primary) hypertension; E78.5 Hyperlipidemia, unspecified; K21.9 Gastro-esophageal reflux disease without esophagitis; F17.210 Nicotine dependence, cigarettes, uncomplicated; J45.909 Unspecified asthma, uncomplicated; Z86.2 Personal history of diseases of the blood and blood-forming organs and certain disorders involving the immune mechanism; Z90.49 Acquired absence of other specified parts of digestive tract; Z79.1 Long term (current) use of non-steroidal anti-inflammatories (NSAID); Z79.2 Long term (current) use of antibiotics; Z79.899 Other long term (current) drug therapy; Z88.0 Allergy status to penicillin; Z88.1 Allergy status to other antibiotic agents; Y92.89 Other specified places as the place of occurrence of the external cause
CPT/HCPCS: 94640; 96372; 99284; J1100; J1200; J1885; J7644

== ENCOUNTER 2023-10-17 18:42 | Emergency (ER) | payer MEDICAID ==
[~2023-10-17] VITALS: Ht 172.7 cm; Wt 119.2 kg
[2023-10-17 20:02] LABS: Basophils # (auto) 0 10 ^3/uL (0-0.2); Basophils % (auto) 0.2 % (0.0-2.0); Eosinophils # (auto) 0.4 10 ^3/uL (0-0.8); Eosinophils % (auto) 2.4 % (0.0-7.0); Hematocrit 44.7 % (36.0-46.0); Hemoglobin 15.2 g/dL (12.2-16.2); Lymphocytes # (auto) 3.2 10 ^3/uL (0.4-5.4); Lymphocytes % (auto) 18.9 % (10.0-50.0); Mean Corpuscular Volume 85.3 fL (80.0-100.0); Monocytes # (auto) 1.2 10 ^3/uL (0-1.3); Neutrophils # (auto) 12.1 10 ^3/uL (1.6-8.6); Neutrophils % (auto) 71.5 % (37.0-80.0); Nucleated Red Blood Cells % 0.1 %; Red Blood Cells 5.24 10^6/uL (4.0-5.20); Red Cell Distribution Width 16.9 % (11.8-14.3); White Blood Cell 16.9 10^3/uL (4.4-10.8)
[2023-10-17 20:21] LABS: Alanine Aminotransferase 19 U/L (7-40); Albumin 4.6 g/dL (3.2-4.8); Alkaline Phosphatase 81 U/L (46-116); Anion Gap 5 (5-15); Aspartate Aminotransferase 21 U/L (13-40); BUN/Creatinine Ratio 10.9 (10.0-20.0); Bilirubin, Total 0.2 mg/dL (0.2-1.0); Blood Urea Nitrogen 7 mg/dL (9-23); Calcium 9.1 mg/dL (8.5-10.1); Carbon Dioxide 29 mmol/L (20-30); Chloride 104 mmol/L (98-107); Glucose 98 mg/dL (74-106); Potassium 3.3 mmol/L (3.5-5.1); Sodium 138 mmol/L (136-145); Total Protein 7.1 g/dL (5.7-8.2)
[2023-10-17] MEDS ORDERED: HYDROcodone-ACET 5/325MG TAB PO ONE (22:30)
[2023-10-17 23:14] VITALS: BP 163/112; PULSE 99; RESP 16; TEMP 98; O2SAT 97
[2023-10-17] MEDS: KETOROLAC TROMETH 60MG/2ML VIAL IM ONE (23:18)
== END 2023-10-17 23:36 | disposition home or self-care (01) ==
LOC: ER 18:42
DX: I10 Essential (primary) hypertension (principal); R51.9 Headache, unspecified; E78.5 Hyperlipidemia, unspecified; F41.9 Anxiety disorder, unspecified; J45.909 Unspecified asthma, uncomplicated; K21.9 Gastro-esophageal reflux disease without esophagitis; E23.7 Disorder of pituitary gland, unspecified; F17.210 Nicotine dependence, cigarettes, uncomplicated; Z88.0 Allergy status to penicillin; Z88.1 Allergy status to other antibiotic agents
CPT/HCPCS: 36415; 70450; 80053; 84484; 85025; 93005; 96372; 99285; J1885